=== PATIENT | female | born 1985 | race Caucasian/White ===

== ENCOUNTER 2023-04-26 10:29 | Outpatient (AMB) | payer OTHER, SELFPAY ==
--- NOTE | 2023-04-26 10:30 | AM.OFFWIN_ITS ---
Intake Vital Signs 3 04/26/23 10:33 Height 5 ft 1 in Weight 217 lb 6 oz BMI 41.1 BP 100/60 Blood Pressure Location Lt brachial Position Sitting Respiration 13 Pulse 101 H Pulse Source Pulse Oximeter Temp 98.6 F Temp Source Oral Pulse Oximetry (%) 98 Oxygen Delivery Method Room Air Intake Visit Reasons: red infected incision post surgery Intake Note: Patient has appendectomy on April 10, 2023 and has since had a follow up appointment. Patient reports the steri-strips were removed at the follow up appointment and she has noticed tenderness with redness x2 days. Patient would like to be evaluated at her surgical site. Patient Tobacco Use Status: Never used Tobacco Receivable Clerk Required: No Accompanied by: Self / Same As Patient Allergies No Known Allergies Allergy (Verified 04/26/23 10:47) Medication List - Last Reconciled 04/26/23 by MARGARITA Samayoa- fluoxetine 20 mg PO DAILY Do you need a note to return to daycare/school/sports/work: No HPI HPI Comments 2 History of Present Illness0 Details [facility] appendectomy 04/10/23. FU with surgeon ~ 10 days ago. Sutures removed. Told things looked fine. A few days ago, noticed redness and tendernes to LLQ incision. Has been applying neosporin and applying bandaid at home. Denies fever, chills, drainge. PFSH Social History Patient Tobacco Use Status: Never used Tobacco Review of Systems Const All systems reviewed & are unremarkable except as noted in HPI and below Physical Exam Vital Signs: Last Vital Signs Temp 98.6 F 04/26/23 10:33 Pulse 101 H 04/26/23 10:33 Resp 13 04/26/23 10:33 BP 100/60 04/26/23 10:33 Pulse Ox 98 04/26/23 10:33 Oxygen Delivery Method Room Air 04/26/23 10:33 BMI result Body Mass Index 41.1 Const Other: awake alert oriented, NAD speaking in full sentences GI Abdomen image: 2 1. surgical incision, + erythema, tenderness, mild separation of edges on L side, no drainage. This was cleansed after exam and DCD applied. 2. 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 Take with food make sure to complete antibiotic therapy even if the infection seems to have cleared before at the completion. Surgical incision should remain clean and dry. Wash daily with antibacterial soap. Avoid friction by applying a non adh pad over the skin. Your can use small piece of tape to hold this in place but can also just talking to her pants. Do not use an occlusive dressing as her should be able to get to the skin to aid in healing. If increased redness pain drainage or fever develops please be sure to call the surgeon or come back for additional care. Otherwise should heal up without a problem. Coding Level of Care Code Est Pt Level 3 (74523) Diagnoses Postoperative wound infection T81.49XA
[2023-04-26 10:33] VITALS: BP 100/60; PULSE 101; RESP 13; TEMP 37; O2SAT 98; BMI 41.1
== END 2023-04-26 13:48 | disposition home or self-care (01) ==
PROVIDERS: Visit Provider Nurse Practitioner Family
DX: T81.49XA Infection following a procedure, other surgical site, initial encounter (principal)
CPT/HCPCS: 99213

== ENCOUNTER 2025-02-19 12:02 | Emergency (ER) | payer SELFPAY ==
--- NOTE | 2025-02-19 12:40 | ED_ITS ---
HPI - Psych General Chief Complaint: Anxiety Stated Complaint: Anxiety Attack Time Seen by Provider: 02/19/25 13:04 Source: patient Mode of arrival: ambulatory Limitations: no limitations History of Present Illness ED Provider: Karely [facility] PA-C HPI Narrative: 39-year-old female medical history of anxiety, alcohol use disorder presents to the ED due to having a panic attack. 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 Patient states she is without a PCP right now, has been prescribed fluoxetine and hydroxyzine for management of anxiety however has been without these medications for some time. Patient states that she got a fluoxetine prescription through [facility], but states she use hydroxyzine for panic attacks which she does not have at this time. Patient reports approximately 2 years of increased drinking and states she drinks 2 tall cans at least 5 days out of the week, denies alcohol withdrawals/hospitalization for alcohol withdrawal in the past. Denies SI/HI/AH/VH, chest pain, shortness of breath, abdominal pain, nausea, vomiting Related Data Home Medications ?Medication ?Instructions ?Recorded ?Confirmed fluoxetine 20 mg capsule 20 mg PO DAILY 04/26/2307/18 Previous Rx's ?Medication ?Instructions ?Recorded cephalexin 500 mg capsule 500 mg PO TID 7 days #21 cap s 04/26/23 hydroxyzine HCl 25 mg tablet 25 mg PO BID PRN nausea a nd 02/19/25 vomiting #60 tabs Allergies Allergy/AdvReac Type Severity Reaction Status Date / Time No Known Allergies Allergy Verified 02/19/25 12:47 Review of Systems 2 Review of Systems: CONST: Negative for fever, body aches and chills. HENT: Negative for neck pain/stiffness, headache, congestion, sore throat, swelling. EYES: Negative for discharge/pain or vision changes. RESP: Negative for cough/hemoptysis and shortness of breath. CV: Negative chest pain, difficulty breathing, palpitations. ABD: Negative pain, nausea, vomiting. : Negative increase frequency, dysuria, blood in urine or stool. MUSC: Negative for muscle aches, edema. SKIN: Negative rash, lesions/sores. NEURO: Negative headache, dizziness, weakness. PSYCH: POS increased anxiety, panic attack Yes all other systems are reviewed and are negative [facility] Past Medical History Attestation statement: The following information was validated with the patient. Source: old records reviewed, obtained from family (Significant other at bedside corroborating history) and nursing notes reviewed Social History Social History Alcohol intake: current Alcohol intake frequency: 0-2 drinks per day Alcohol type: beer Patient Tobacco Use Status: Never used Tobacco Smoked in Last 30 Days: No Use of substances other than those prescribed or required for medical reasons: No Advance Directives: No Advance Directives Information Provided: Yes Do you have a plan to hurt others: No Plan Physical Exam 2 Vital Signs: Vital Signs: Last Vital Signs Temp 98.3 F 02/19/25 14:41 Pulse 96 02/19/25 14:41 Resp 18 02/19/25 14:41 BP 120/60 02/19/25 14:41 Pulse Ox 98 02/19/25 14:41 O2 Del Method Room Air 02/19/25 14:41 BMI result Body Mass Index 32.3 GENERAL APPEARANCE: ?AxOx4, slightly tremulous, no diaphoresis, no acute distress. HEENT: ?NC, AT. MMM. EOMI, clear conjunctiva, oropharynx clear. NECK: ?Supple without lymphadenopathy.? No stiffness or restricted ROM. HEART:? Normal rate and regular rhythm, normal S1/S2, no m/r/g LUNGS:? CTAB, moving air well. No crackles or wheezes are heard. ABDOMEN: ?Soft, nontender, nondistended with good bowel sounds heard. BACK: No CVAT, no obvious deformity. EXTREMITIES: ?Without cyanosis, clubbing or edema. NEUROLOGICAL: ?Grossly nonfocal. Alert and oriented, moving all 4 extremities. Observed to ambulate with normal gait. Skin: ?Warm and dry without any rash. Course Course Course Narrative: This is an RME: Additional HPI, ROS, PE not included below will be deferred to primary provider. RME assessment and note performed by: Mala Olsen PA-C This is a [id number]-female who presents to the ER accompanied by her boyfriend with complaints of anxiety. Reports that she believes that she is having a panic attack. NO SI or HI. Reports that she just recently stopped drinking, reports that she would have several bud light ml mixed drinks and sometimes hard liquor with it, since stopping symptoms have worsened. BL hand spasms and cramping noted. Pt tearful. Reporting dizziness. discussed with charge nurse to bring pt back to due concern for ?etoh withdrawal Plan: labs, ekg, further ER eval needed Medications Administered Discontinued Medications Generic Name Dose Route Start Last Admin Trade Name Asa PRN Reason Stop Dose Admin Hydroxyzine HCl 25 mg 02/19/25 13:58 02/19/25 14:23 Hydroxyzine Hcl 25 Mg Tablet PO 02/19/25 13:59 25 mg ONCE ONE Administration Magnesium Sulfate 2 gm in 50 mls @ 150 mls/hr 02/19/25 13:58 02/19/25 14:30 Magnesium Sulfate/H2o IV 02/19/25 14:17 Infused ONCE ONE Infusion Medical Decision Making Medical Decision Making [facility] Narrative: 39-year-old female medical history of anxiety, alcohol use disorder presents to the ED due to having a panic attack. 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 Patient states she is without a PCP right now, has been prescribed fluoxetine and hydroxyzine for management of anxiety however has been without these medications for some time. Patient states that she got a fluoxetine prescription through [facility], but states she use hydroxyzine for panic attacks which she does not have at this time. Patient reports approximately 2 years of increased drinking and states she drinks 2 tall cans at least 5 days out of the week, denies alcohol withdrawals/hospitalization for alcohol withdrawal in the past. Denies SI/HI/AH/VH Labs without leukocytosis/leukopenia, H&H stable without evidence of anemia, hypomagnesemia of 1.1, hyperbilirubinemia 1.4, mild transaminitis with AST of 165, ALT of 52, alkaline phosphatase of 133-this is most likely elevated due to excessive alcohol consumption. EKG reveals normal sinus rhythm without evidence of arrhythmia, ST- elevation/depression, T-wave abnormality, initial troponin undetectable at < 2.7, patient without chest pain- unlikely ACS Patient is interested in discussing resources and options for cutting down drinking with recovery team. When patient was brought into stretcher in the department she was tachycardic at 116 beats per minute and tachypneic at 26 breaths per minute. Patient was medicated with 25 milligrams hydroxyzine which resolved tachycardia and tachypnea. Vital signs now show BP of 120/60, pulse rate of 96, respiratory rate of 18, afebrile with oral temp of 98.3, O2 saturation 98 percent on room air. Patient without tremors, no diaphoresis, no nausea/vomiting/abdominal pain, no altered mental status, no visual or tactile hallucinations- less likely alcohol withdrawal Anxiety is now well controlled after medication, Patient states she is feeling much better after being medicated. Patient given outpatient resources for support with alcohol use disorder. Patient states she feels much better and is comfortable with going home for self-care. I counseled patient on strict return precautions, we will provide referrals for primary care and discharge paperwork. I will discharge patient with 30 days of hydroxyzine as she does not have a PCP and states this medication helps her during panic attacks. Differential Diagnosis Differential Diagnoses: The differential diagnosis associated with the presentation includes Lab Data MDM Lab Attestation statement: I reviewed the patient's lab results. 02/19/25 13:18 02/19/25 13:18 Labs: Lab Results 02/19/25 Range/Units 13:18 WBC 7.9 (4.8-10.8) X10*3/uL RBC 4.25 (4.20-5.50) X10*6/uL Hgb 14.3 (12.0-16.0) g/dl Hct 40.6 (37.0-47.0) % MCV 95.5 (80.0-98.0) fL MCH 33.6 H (27.0-33.0) pg MCHC 35.2 H (31.0-35.0) g/dl RDW 14.0 (11.0-16.0) % Plt Count 227 (160-400) X10*3/uL MPV 9.9 (9.4-12.3) fL Immature Gran % (Auto) 0.3 (0.0-0.4) % Neut % (Auto) 62.5 (45-73) % Lymph % (Auto) 29.2 (20-40) % [place] % (Auto) 6.7 (2-11) % Eos % (Auto) 0.4 (0-4) % Baso % (Auto) 0.9 (0-2) % Lymph # (Auto) 2.3 (1.2-4.9) X10*3/uL [place] # (Auto) 0.5 (0.1-1.2) X10*3/uL Eos # (Auto) 0.0 (0.0-0.4) X10*3/uL Baso # (Auto) 0.1 (0.0-0.2) X10*3/uL Abs Immat Gran (auto) 0.02 (0.00-0.03) X10*3/uL Absolute Neuts (auto) 4.9 (2.0-8.3) x10*3/uL Absolute Nucleated RBC 0.000 (0.0-0.012) X10*3/uL Nucleated RBC % (auto) 0.0 (0.0-0.2) /100WBC Sodium 137 (135-145) mmol/L Potassium 3.3 (3.3-5.1) mmol/L Chloride 103 (96-108) mmol/L Carbon Dioxide 24 (22-29) mmol/L Anion Gap 13 (12-20) BUN 3 L (9-16) mg/dL Creatinine 0.73 (0.5-1.4) mg/dL Estim Creat Clear Calc 99.4 Estimated GFR > 60 Random Glucose 109 (60-115) mg/dL Calcium 8.9 (8.4-10.2) mg/dL Magnesium 1.1 L* (1.6-2.6) mg/dL Total Bilirubin 1.4 H (0.0-1.0) mg/dL Direct Bilirubin 0.7 H (0.0-0.5) mg/dL AST 165 H (5-31) U/L ALT 52 H (0-31) U/L Alkaline Phosphatase 133 H (39-117) U/L Troponin I High Sens < 2.7 (<3.5-17.0) ng/L Total Protein 7.0 (6.5-8.0) g/dL Albumin 4.0 (3.5-5.0) g/dL Ethyl Alcohol < 10 mg/dL Influenza Type A (PCR) NEGATIVE (Negative) Influenza Type B (PCR) NEGATIVE (Negative) RSV RNA Qual (PCR) NEGATIVE (Negative) SARS-CoV-2 RNA (RT-PCR) NEGATIVE (Negative) Independent Interpretation I performed an independent interpretation of an: EKG Interpretation: I personally interpreted the EKG which shows normal sinus rhythm without arrhythmia, ST-elevation/depression, T-wave abnormality Vent. Rate : 92 BPM Atrial Rate : 92 BPM P-R Int : 136 ms QRS Dur : 70 ms QT Int : 368 ms P-R-T Axes : 50 49 42 degrees QTcB Int : 455 ms Normal sinus rhythm Normal ECG No previous ECGs available Independent Historian Clinical information obtained from an independent historian. History obtained from or confirmed by: Spouse (Significant other at bedside corroborating history) External Record Review External record reviewed: Inpatient record, Office record and Outpatient record Prescription Management I considered prescription management with: Other (phenobarbital ) I contemplated beginning phenobarbital protocol however less concern for alcohol withdrawal as patient's symptoms have improved after medicating with hydroxyzine, patient without altered mental status, confusion, tactile/visual hallucinations, without tremor, no diaphoresis, no nausea/vomiting/abd pain, I am less concerned for patient being in alcohol withdrawal at this time. Chronic Conditions Patient?s care impacted by: Other (Anxiety, alcohol use disorder) Social Determinants Patient?s care significantly limited by Social Determinants of Health including: Other Social Determinant of Health Discharge Plan Discharge Clinical Impression: Acute anxiety Patient Disposition: Home, Self-Care Instructions: Panic Disorder (ED), Anxiety (ED) Additional Instructions: You were evaluated in the emergency department today after experiencing a panic attack. Your lab work showed that you were low on magnesium, you were repleted with 2 grams while in the department. Your EKG was normal, your troponin which is an enzyme of the heart gives off when under stress or damage was negative which is reassuring that your symptoms were not caused by a cardiac etiology. I will provide referrals for primary care, you need to call their office they will not call you. I will prescribe you a 30 day prescription of hydroxyzine that you can use for acute panic attacks. If you would like to cut down or stop your alcohol use please consider calling our outpatient Addiction Treatment office:? [facility] ([id number]) [address] You have also been given a list of treatment providers in the area that can assist as well.? If you experience seizures, vomiting blood, black stools, falls, severe headache, chest pain, fevers, trouble breathing, hallucinations or any other concerns you need to call 911 or seek immediate care. Please stay hydrated. Prescriptions: New hydroxyzine HCl 25 mg tablet 25 mg PO BID PRN (Reason: nausea and vomiting) Qty: 60 0RF No Action fluoxetine 20 mg capsule 20 mg PO DAILY cephalexin 500 mg capsule 500 mg PO TID 7 Days Qty: 21 0RF Referrals: [facility] [place] [facility] [Provider Group, Family Practice] [facility] [Provider Group, Family Practice] Yesenia Guajardo MD [Physician, Family Practice] Hernan Lara DO [Physician, Family Practice] Brandie Badillo NP [Nurse Practitioner, Family Practice] Print Language: Burkinan
[2025-02-19 12:41] VITALS: BP 112/79; PULSE 116; RESP 26; TEMP 36.6; O2SAT 98; BMI 32.3
--- NOTE | 2025-02-19 12:46 | ECG_ITS ---
Test Reason : anxiety Blood Pressure : */* mmHG Vent. Rate : 92 BPM Atrial Rate : 92 BPM P-R Int : 136 ms QRS Dur : 70 ms QT Int : 368 ms P-R-T Axes : 50 49 42 degrees QTcB Int : 455 ms Normal sinus rhythm Normal ECG No previous ECGs available Referred By: Mala Olsen Electronically Signed By: GUCCI DONOHUE
[2025-02-19 13:24] LABS: MANUAL DIFF FLAG NO
--- OUTSIDE RECORDS SUMMARY | 2025-02-19 13:25 | XMS_ITS | Clinical Summary ---
Author Organization [facility] Address [facility] [place] [address] Care Team Providers Care Substation Supervisor Name Role Phone Unknown Primary Care Provider Unavailabl e Allergies No known active allergies Medications levonorgestrel 19.5 mcg/24 hrs (5 yrs) 52 mg IUD 1 Device by Intrauterine route. 7 Active busPIRone (Buspar) 10 mg Tablet TAKE 0.5-1 TABLET BY MOUTH UP TO TWICE DAILY NEEDED 2 Active LORazepam (Ativan) 1 mg Tablet TAKE 1 TABLET BY MOUTH EVERY 6 TO 8 HOURS NEEDED FOR ANXIETY. MAY CAUSE DIZZINESS/DROWSI NESS 2 Active FLUoxetine (PROzac) 20 mg tabletIndicatio ns:Panic attack,Anxiety Take 1 tablet by mouth daily. 90 tablet 3 Active hydrOXYzine (Atarax) 25 mg tabletIndicatio ns:Anxiety,Brandi c attack TAKE 1 TABLET BY MOUTH THREE TIMES A DAY NEEDED FOR ANXIETY 90 tablet 4 Active Active Problems No known active problems Social History Tobacco Use Types Packs/Day Years Used Date Smoking Tobacco: Never Smokeless Tobacco: Never Comments No Sex and Gender Information Value Date Recorded Sex Assigned at Not on file Legal Sex Female 7:01 AM EST Gender Identity Not on file Sexual Orientation Not on file Last Filed Vital Signs Vital Sign Reading Time Taken Comments Blood Pressure 118/78 04/05/2022 11:25 AM EDT Pulse 90 04/05/2022 11:25 AM EDT Temperature 36 C (96.8 F) 04/05/2022 11:25 AM EDT Respiratory Rate - - Oxygen Saturation 98% 04/05/2022 11:25 AM EDT Inhaled Oxygen Concentration - - Weight 97.5 kg (215 lb) 04/05/2022 11:25 AM EDT Height 158 cm (5' 2.21 ) 03/19/2019 9:22 AM EDT Body Mass Index 39.07 03/19/2019 9:22 AM EDT Plan of Treatment Health Maintenance Due Date Last Done Comments HIV screen 2005 Hepatitis C Screening 2005 Lipid Screening 2005 Hepatitis B vaccine (0-59 yr s) and Risk (1) 2006 Tetanus/Diphtheria/Pertussis Vaccines (1 - Tdap) 2006 Covid-19 Vaccine (1 - 2023-2 5 season) 2024 Influenza (Flu) vaccine (1 o f 1 - Influenza standard series) 02/24/2025 HPV test 04/25/2027 04/25/2022 (Repo rt in [facility]), 07/18/2018 (Report in [facility]) PAP Smear 04/25/2027 04/25/2022 (Repo rt in [facility]), 07/18/2018 (Report in [facility]) Insurance [employer] Care Teams Substation Supervisor Relationship Specialty Start Date End Date Unknown None PCP - General 02/08/24
--- OUTSIDE RECORDS SUMMARY | 2025-02-19 13:25 | XMS_ITS | Encounter Summary ---
Author Organization [facility] Address [facility] [place] [address] Care Team Providers Care Mailroom Associate Name Role Phone Unknown Primary Care Provider Unavailabl e Reason for Visit * Reason Comments Medication Refill Encounter Details Date Type Department Care Team (Late st Contact Info) Description 12/29/2021 Refill [facility] [address] [place] [address] Allie Hand MD [address] [place] [address] Anxiety; Panic attack Social History Tobacco Use Types Packs/Day Years Used Date Smoking Tobacco: Never Smokeless Tobacco: Never Comments No Sex and Gender Information Value Date Recorded Sex Assigned at Not on file Legal Sex Female 7:01 AM EST Gender Identity Not on file Sexual Orientation Not on file documented as of this encounter Plan of Treatment Not on file documented as of this encounter Visit Diagnoses Diagnosis Anxiety Anxiety state, unspecified Panic attack Panic disorder without agoraphobia documented in this encounter Care Teams Mailroom Associate Relationship Specialty Start Date End Date Unknown None PCP - General 02/08/24 documented as of this encounter
[2025-02-19 13:26] LABS: Hematocrit 40.6 % (37.0-47.0); Hemoglobin 14.3 g/dl (12.0-16.0); Imm Gran Abs Auto 0.02 X10*3/uL (0.00-0.03); Imm Gran Pct Auto 0.3 % (0.0-0.4); Lymphocytes Absolute Auto 2.3 X10*3/uL (1.2-4.9); Mean Corpuscular HGB Conc 35.2 g/dl (31.0-35.0); Mean Corpuscular Hemoglobin 33.6 pg (27.0-33.0); Mean Corpuscular Volume 95.5 fL (80.0-98.0); NRBC Abs Auto 0.000 X10*3/uL (0.0-0.012); NRBC Pct Auto 0.0 /100WBC (0.0-0.2); Platelet Count 227 X10*3/uL (160-400); Red Blood Count 4.25 X10*6/uL (4.20-5.50); White Blood Count 7.9 X10*3/uL (4.8-10.8)
--- NOTE | 2025-02-19 13:49 | PC.NURSE ---
PT A&O X4 VSS NAD patient exhibiting tremors which she states is normally what she experiences with this type of anxiety Provider aware, Pt asked about ETOH use and states she only drank 1 large bud light yesterday sheela and then previously over the weekend- denies ETOH withdrawal. States This is how I am with my anxiety . No other complaints- states It is subsiding now that I've been here .
[2025-02-19 13:53] LABS: Alanine Aminotransferase 52 U/L (0-31); Albumin Level 4.0 g/dL (3.5-5.0); Alkaline Phosphatase 133 U/L (39-117); Anion Gap 13 (12-20); Aspartate Amino Transferase 165 U/L (5-31); Blood Urea Nitrogen 3 mg/dL (9-16); Calcium 8.9 mg/dL (8.4-10.2); Carbon Dioxide 24 mmol/L (22-29); Chloride 103 mmol/L (96-108); Creatinine Clr Calc Pharmacy 99.4; Estimated Glomerular Filt Rate > 60; Magnesium 1.1 mg/dL (1.6-2.6); Potassium 3.3 mmol/L (3.3-5.1); Sodium 137 mmol/L (135-145); Total Protein 7.0 g/dL (6.5-8.0)
[2025-02-19 13:54] LABS: Troponin-I High Sensitivity < 2.7 ng/L (<3.5-17.0)
[2025-02-19 14:21] LABS: Resp Syncy Virus RNA Qual PCR NEGATIVE (Negative); SARS COV2 PCR INHOUSE NEGATIVE (Negative)
[2025-02-19] MEDS: Magnesium Sulfate/H2O 2 GM/50 ML PIGGYBACK IV (14:23)
[2025-02-19 14:41] VITALS: BP 120/60; PULSE 96; RESP 18; TEMP 36.8; O2SAT 98
--- NOTE | 2025-02-19 15:58 | MHC.CARE ---
CARE Team met with Pt in ED18H for anxiety and alcohol use. Per ED provider, a full LOC evaluation was not needed as Pt was only looking for recovery and mental health resources/information. Upon approach, Pt is sitting on the side of a hospital stretcher alert and oriented x4. Pt's significant other is standing at her bedside. She is somewhat shakey and appears anxious. Speech is organized, oriented and appropriate. She denies SI/HI/AVH and declines wanting detox. Pt reports that she moved to [place], [place] about 2 years ago and does not know what care she has access to in that area. Pt was provided information about the [facility], [facility], [facility] crisis and psychology today (for mental health providers). Pt verbalized understanding and agreed to present back to an ED if her symptoms worsened.
== END 2025-02-19 16:13 | disposition home or self-care (01) ==
PROVIDERS: Physician Assistant Medical; Emergency Provider Emergency Medicine
DX: F41.9 Anxiety disorder, unspecified (principal); R25.2 Cramp and spasm; R42 Dizziness and giddiness; Z03.818 Encounter for observation for suspected exposure to other biological agents ruled out; Z79.899 Other long term (current) drug therapy
CPT/HCPCS: 36415; 80048; 80076; 80307; 83735; 84484; 85025; 87637; 93005; 96374; 99284; J3475

== ENCOUNTER → 2025-02-19 12:46 | Outpatient (BNV) | payer SELFPAY | PROVIDERS: Emergency Provider Emergency Medicine; Visit Provider Internal Medicine | DX: F41.9 Anxiety disorder, unspecified (principal) | CPT/HCPCS: 93010 ==